=== PATIENT | male | born 1955 | race Caucasian/White ===

== ENCOUNTER 2021-08-23 08:05 | Emergency (ER) | payer OTHER ==
--- NOTE | 2021-08-23 08:36 | ER ---
Nurse's Notes [facility] Name: Bryce Medina Age: 66 yrs Sex: Male : 1955 Arrival Date: 08/23/2021 Time: 08:07 Bed 10 Private MD: Beto Camejo F Diagnosis: Coronavirus infection, unspecified Presentation: 08/23 08:15 Chief complaint: Patient states: I tested positive for covid yesterday, I have had 60 jg9 hours of symptoms-fever, body aches, sob, general malaise. Coronavirus screen: Vaccine status: Patient reports receiving the 2nd dose of the covid vaccine. Ebola Screen: Patient negative for fever greater than or equal to 101.5 degrees Fahrenheit, and additional compatible Ebola Virus Disease symptoms Patient denies exposure to infectious person. Patient denies travel to an Ebola-affected area in the 21 days before illness onset. Initial Sepsis Screen: Does the patient meet any 2 criteria? No. Patient's initial sepsis screen is negative. Does the patient have a suspected source of infection? No. Patient's initial sepsis screen is negative. Risk Assessment: Do you want to hurt yourself or someone else? Patient reports no desire to harm self or others. Onset of symptoms is unknown. 08:15 Method Of Arrival: Ambulatory jg9 08:15 Acuity: KARLENE 4 jg9 Triage Assessment: 08:17 General: Appears in no apparent distress. Behavior is calm, cooperative. Pain: Denies jg9 pain. EENT: No deficits noted. Neuro: No deficits noted. Cardiovascular: No deficits noted. Respiratory: Reports shortness of breath intermittent. GI: No deficits noted. : No deficits noted. Derm: No deficits noted. Musculoskeletal: No deficits noted. Historical: - Allergies: 08:16 PENICILLINS; jg9 - PMHx: 08:16 Depression; Hypertension; Sleep Apnea; jg9 - Immunization history:: Client reports receiving the 2nd dose of the Covid vaccine, Pneumococcal vaccine is up to date, Flu vaccine is not up to date. - Social history:: Smoking status: Patient denies any tobacco usage or history of. Screenin:17 Abuse screen: Denies threats or abuse. Denies injuries from another. Nutritional jg9 screening: No deficits noted. Tuberculosis screening: No symptoms or risk factors identified. Fall Risk None identified. Vital Signs: 08:15 BP 146 / 85; Pulse 80; Resp 20 S; Temp 97.4(TE); Pulse Ox 99% on R/A; Weight 151.95 kg jg9 (R); Height 5 ft. 9 in. (175.26 cm) (R); Pain 0/10; 08:45 BP 117 / 9; Pulse 78; Resp 18 S; Pulse Ox 99% on R/A; jg9 08:15 Body Mass Index 49.47 (151.95 kg, 175.26 cm) jg9 ED Course: 08:07 Patient arrived in ED. am2 08:07 Beto Camejo MD is Private Physician. am2 08:10 Ngoc Rodriguez, KEERTHI is Primary Nurse. jg9 08:16 Triage completed. jg9 08:17 Patient has correct armband on for positive identification. Bed in low position. Call jg9 light in reach. 08:18 Arm band placed on right wrist. jg9 08:19 Theo Morales NP is PHCP. pm1 08:19 Nickolas Campbell MD is Attending Physician. pm1 08:35 Beto Camejo MD is Referral Physician. pm1 08:38 No provider procedures requiring assistance completed. jg9 08:49 Patient did not have IV access during this emergency room visit. jg9 Administered Medications: No medications were administered Medication: 08:38 VIS not applicable for this client. jg9 Outcome: 08:36 Discharge ordered by . pm1 08:49 Discharged to home ambulatory. jg9 08:49 Condition: stable 08:49 Discharge instructions given to patient, Instructed on discharge instructions, follow up and referral plans. Demonstrated understanding of instructions, follow-up care, Prescriptions given X 1. 08:49 Patient left the ED. jg9 Signatures: Theo Morales NP MOTORBOAT OPERATOR pm1 Luba Haq am2 Ngoc Rodriguez, KEERTHI RN jg9
--- NOTE | 2021-08-23 08:36 | EDPHYS ---
Physician Documentation [facility] Name: Bryce Medina Age: 66 yrs Sex: Male : 1955 Arrival Date: 08/23/2021 Time: 08:07 Bed 10 Private MD: Beto Camejo F ED Physician Nickolas Campbell HPI: 08/23 08:34 This 66 yrs old Male presents to ER via Ambulatory with complaints of covid +, Doctor pm1 Referral. 08:34 Onset: The symptoms/episode began/occurred today. pm1 08:34 Associated signs and symptoms: Pertinent positives: fever, bodyaches, Pertinent pm1 negatives: abdominal pain, chest pain, shortness of breath, nausea, vomiting, diarrhea. 66-year-old male presents to the ER with complaints of covid symptoms. Patient with body aches and fever. Denies cough or shortness of breath or chest pain. Patient contacted his primary care provider, Dr. Lloyd, and was instructed to report to the ER for medication to treat covid. Patient is looking for a prescription of Paxlovid . Historical: - Allergies: 08:16 PENICILLINS; jg9 - PMHx: 08:16 Depression; Hypertension; Sleep Apnea; jg9 - Immunization history:: Client reports receiving the 2nd dose of the Covid vaccine, Pneumococcal vaccine is up to date, Flu vaccine is not up to date. - Social history:: Smoking status: Patient denies any tobacco usage or history of. ROS: 08:34 Eyes: Negative for injury, pain, redness, and discharge, ENT: Negative for injury, pm1 pain, and discharge, Cardiovascular: Negative for chest pain, palpitations, and edema, Respiratory: Negative for shortness of breath, cough, wheezing, and pleuritic chest pain, Abdomen/GI: Negative for abdominal pain, nausea, vomiting, diarrhea, and constipation, Back: Negative for injury and pain, MS/Extremity: Negative for injury and deformity, Skin: Negative for injury, rash, and discoloration, Neuro: Negative for headache, weakness, numbness, tingling, and seizure. 08:34 Constitutional: Positive for body aches, fever. 08:34 All other systems are negative. Exam: 08:34 Constitutional: This is a well developed, well nourished patient who is awake, alert, pm1 and in no acute distress. Head/Face: Normocephalic, atraumatic. 08:34 Back: No spinal tenderness. No costovertebral tenderness. Full range of motion. Skin: Warm, dry with normal turgor. Normal color with no rashes, no lesions, and no evidence of cellulitis. MS/ Extremity: Pulses equal, no cyanosis. Neurovascular intact. Full, normal range of motion. 08:34 Eyes: Exam is negative for acute changes, Extraocular movements: no acute changes, Conjunctiva: no acute changes. 08:34 Cardiovascular: Exam negative for acute changes, Rate: normal, Rhythm: regular, Pulses: no pulse deficits are appreciated, Heart sounds: normal. 08:34 Respiratory: Exam negative for acute changes, respiratory distress, shortness of breath, Breath sounds: are clear throughout. 08:34 Abdomen/GI: Exam negative for acute changes, Inspection: abdomen appears normal, Palpation: abdomen is soft and non-tender, in all quadrants. 08:34 Neuro: Exam negative for acute changes, Orientation: is normal, Mentation: is normal, Motor: is normal, moves all fours. Vital Signs: 08:15 BP 146 / 85; Pulse 80; Resp 20 S; Temp 97.4(TE); Pulse Ox 99% on R/A; Weight 151.95 kg jg9 (R); Height 5 ft. 9 in. (175.26 cm) (R); Pain 0/10; 08:45 BP 117 / 9; Pulse 78; Resp 18 S; Pulse Ox 99% on R/A; jg9 08:15 Body Mass Index 49.47 (151.95 kg, 175.26 cm) jg9 MDM: 08:20 Patient medically screened. pm1 08:21 Data reviewed: vital signs. Data interpreted: Pulse oximetry: on room air is 99 %. pm1 Interpretation: normal. 08:34 Counseling: I had a detailed discussion with the patient and/or guardian regarding: the pm1 historical points, exam findings, and any diagnostic results supporting the discharge/admit diagnosis, the need for outpatient follow up, to return to the emergency department if symptoms worsen or persist or if there are any questions or concerns that arise at home. Administered Medications: No medications were administered Disposition: 11:57 Co-signature as Attending Physician, Nickolas Campbell MD. rn Disposition Summary: 08/23/21 08:36 Discharge Ordered Location: Home pm1 Problem: new pm1 Symptoms: have improved pm1 Condition: Stable pm1 Diagnosis - Coronavirus infection, unspecified pm1 Followup: pm1 - With: Emergency Department - When: As needed - Reason: Worsening of condition Followup: pm1 - With: Beto Camejo MD - When: 2 - 3 days - Reason: Recheck today's complaints, Continuance of care, Re-evaluation by your physician Discharge Instructions: - Discharge Summary Sheet pm1 - COVID-19 pm1 - COVID-19 Frequently Asked Questions pm1 - 10 Things You Can Do to Manage Your COVID-19 Symptoms at Home - [facility] pm1 - COVID-19: Quarantine vs. Isolation - [facility] pm1 Forms: - Medication Reconciliation Form pm1 - Thank You Letter pm1 - Antibiotic Education pm1 - Prescription Opioid Use pm1 Prescriptions: - PAXLOVID - take 1 unit by ORAL route 2 times per day for 5 days Take AM and PM dosage as pm1 directed; 1 packet; Refills: 0, Dispense as Written Signatures: Nickolas Campbell MD MD rn Marinas, Patrick, NP MACHINE BENDER pm1 Ngoc Rodriguez RN RN jg9
[2021-08-23 08:58] VITALS: TEMP 97.4; O2SAT 99
[2021-08-23 09:00] VITALS: BP 117/9
== END 2021-08-23 08:49 | disposition home or self-care (01) ==
LOC: ER 08:05
DX: U07.1 COVID-19 (principal); I10 Essential (primary) hypertension; Z88.0 Allergy status to penicillin
CPT/HCPCS: 99282

== ENCOUNTER → 2023-04-06 | Emergency (ER) | payer OTHER ==
--- OUTSIDE RECORDS SUMMARY | 2023-04-06 09:20 | XMS REPORT | Continuity of Care Document ---
Author Name Unknown Address [address] [place] [address] [facility] Address [address] [place] [address] Care Team Providers Care Cap Cutter Name Role Phone Blayne Tobar Primary Care Physician [phone] [facility] Bed Attending Clinician Pierce Greene MD Attending Clinician + [phone] PIERCE RIVERA Attending Clinician UnavailPIERCE Sanchez Attending Clinician [place] sim[place] Doctor Unassigned, [place] Attending Clinician U navailable Payers Payer Name Policy Type Policy Number Effective Date Expirati on Date Source Allergies, Adverse Reactions, Alerts Allergy Name Allergy Type Status Severity Reaction(s) Onset Date Inactive Date Treating Clinician Comments Source NO KNOWN ALLERGIE S Drug Class Active [facility] Social History Social Habit Start Date Stop Date Quantity Comments Source Gender identity [facility] Sexual orientation U [facility] Sex Assigned At 1955 00:00:00 1955 00:00:00 [facility] Smoking Status Start Date Stop Date Source Tobacco smoking consumption unknown [facility] Procedures Procedure Date / Time Performed Performing Clinicia n Source SLEEP STUDY DATA REPORT 2022-09-03 05:01:00 Doctor Unassigned, [place] [facility] Encounters Start Date/Time End Date/Time Encounter Type Admission Type Attending Clinicians Care Facility Care Department Encounter ID Source 2022-09-03 20:00:00 2022-09-03 22:30:00 Electrical Repairer Visit 1, [facility] Sleep Lab Bed Pierce Rivera [facility] 1..[id number] [facility] 2022-09-03 20:00:00 2022-09-03 20:00:00 Outpatient R PIERCE RIVERA [facility] [id number] [facility] 2022-09-03 00:00:00 2022-09-03 00:00:00 Orders Only Doctor Unassigned, [place] [facility] 1..[id number] [facility]
[2023-04-06 09:47] LABS: Absolute Lymphocytes (CBC) 1.5 K/uL (0.7-4.9); Hematocrit 49.1 % (39.6-49.0); Lymphocytes % 17.6 % (15.3-44.8); MCV 85.2 fL (80-100); MPV 9.5 fL (7.6-11.3); Platelets 195 thou/uL (152-406); RBC Red Blood Cell Count 5.77 M/uL (4.33-5.43)
[2023-04-06 10:29] LABS: Albumin 3.2 g/dL (3.4-5.0); Bilirubin Total 0.4 mg/dL (0.2-1.0); Potassium 3.8 mEq/L (3.5-5.1); Protein, Total 6.4 g/dL (6.4-8.2)
--- NOTE | 2023-04-06 10:55 | RAD REPORT ---
EXAM DESCRIPTION: CTAbdomen Pelvis W Contrast - 04/06/2023 10:44 am CLINICAL HISTORY: Abdominal pain. rectal bleeding COMPARISON: Abdomen Pelvis W Contrast dated 12/28/2015 TECHNIQUE: Biphasic CT imaging of the abdomen and pelvis was performed with 100 ml non-ionic IV cont rast. All CT scans are performed using dose optimization technique as appropriate and may include automated exposure control or mA/KV adjustment according to patient size. FINDINGS: The lung bases are clear. The liver, spleen, pancreas, adrenal glands and kidneys are within normal limits. Benign bilateral re nal cysts. No bowel obstruction, free air, free fluid or abscess. Moderate stool is present throughout the colon . The appendix is normal. No evidence of significant lymphadenopathy. No suspicious bony findings. Left total hip arthroplasty. IMPRESSION: No acute intra-abdominal or pelvic finding. Moderate retained stool throughout the colon.
--- NOTE | 2023-04-06 11:59 | ER ---
Nurse's Notes [facility] Name: Bryce Medina Age: 68 yrs Sex: Male : 1955 Arrival Date: 04/06/2023 Time: 09:16 Bed 17 Private MD: BRANDON ENG Diagnosis: External hemorrhoid with bleeding;Constipation Presentation: 04/06 09:28 Risk Assessment: Do you want to hurt yourself or someone else? Patient reports no mb9 desire to harm self or others. 09:29 Chief complaint: Patient states: Slight rectal irritation and rectal bleeding started ll1 "a couple days ago". Heavier bright red bleeding with clots started today. No fever or abdominal pain. Coronavirus screen: Client denies travel out of the [place] in the last 14 days. At this time, the client does not indicate any symptoms associated with coronavirus-19. Ebola Screen: Patient denies travel to an Ebola-affected area in the 21 days before illness onset. Initial Sepsis Screen: Does the patient meet any 2 criteria? No. Patient's initial sepsis screen is negative. Does the patient have a suspected source of infection? Yes: Other: rectal pain/bleeding. Onset of symptoms was April 04, 2023. 09:29 Method Of Arrival: Ambulatory ll1 09:29 Acuity: KARLENE 3 ll1 Historical: - Allergies: 09: PENICILLINS; mb9 - PMHx: :21 Depression; Hypertension; Sleep Apnea; mb9 - Immunization history:: Adult Immunizations up to date. - Social history:: Smoking status: Patient denies any tobacco usage or history of. - Family history:: not pertinent. Screenin:21 [facility] ED Fall Risk Assessment (Adult) History of falling in the last 3 months, mb9 including since admission No falls in past 3 months (0 pts) Confusion or Disorientation No (0 pts) Intoxicated or Sedated No (0 pts) Impaired Gait No (0 pts) Mobility Assist Device Used No (0 pt) Altered Elimination No (0 pt) Score/Fall Risk Level 0 - 2 = Low Risk Oriented to surroundings, Maintained a safe environment, Educated pt \\T\\ family on fall prevention, incl call for assistance when getting out of bed. Abuse screen: Denies threats or abuse. Nutritional screening: No deficits noted. Tuberculosis screening: No symptoms or risk factors identified. Assessment: 09:38 General: Appears in no apparent distress. Behavior is calm, cooperative. Pain: Denies mb9 pain. Neuro: Clement Agitation-Sedation Scale (RASS): 0 - Alert and Calm Level of Consciousness is awake, alert, confused, Oriented to person, place, time, situation, Appropriate for age. Cardiovascular: Patient's skin is warm and dry. Respiratory: Airway is patent Respiratory effort is even, unlabored, Respiratory pattern is regular, symmetrical. GI: Abdomen is round non-distended, Bowel sounds present X 4 quads. Abd is soft and non tender X 4 quads. Reports rectal bleeding. : No signs and/or symptoms were reported regarding the genitourinary system. EENT: No signs and/or symptoms were reported regarding the EENT system. Derm: Skin is pink, warm \\T\\ dry. Musculoskeletal: Range of motion: intact in all extremities. 10:54 Reassessment: No changes from previously documented assessment. Patient and/or family mb9 updated on plan of care and expected duration. Pain level reassessed. Patient is alert, oriented x 3, equal unlabored respirations, skin warm/dry/pink. 11:59 Reassessment: No changes from previously documented assessment. Patient and/or family mb9 updated on plan of care and expected duration. Pain level reassessed. Patient is alert, oriented x 3, equal unlabored respirations, skin warm/dry/pink. Vital Signs: 09:29 BP 147 / 79; Pulse 74; Resp 18; Temp 98.8; Pulse Ox 97% on R/A; Pain 3/10; ll1 09:45 BP 122 / 71; Pulse 68; Resp 18; Pulse Ox 100% on R/A; mb9 11:33 BP 124 / 68; Pulse 62; Resp 18; Pulse Ox 97% on R/A; mb9 11:59 BP 136 / 77; Pulse 66; Resp 18; Pulse Ox 100% ; Pain 0/10; mb9 09:29 Pain Scale: Adult ll1 11:59 Pain Scale: Adult mb9 ED Course: 09:19 Patient arrived in ED. rg4 09:19 Son Farris MD is Attending Physician. rt 09:20 BRANDON ENG is Private Physician. rg4 09:20 Fany Leavitt RN is Primary Nurse. mb9 09:20 Arm band placed on. mb9 09:21 Placed in gown. Bed in low position. Call light in reach. Side rails up X 1. Client mb9 placed on continuous cardiac and pulse oximetry monitoring. NIBP monitoring applied. classroom monitor on. 09:32 Triage completed. ll1 09:37 CBC with Diff Sent. mb9 09:37 CMP Sent. mb9 09:37 Inserted saline lock: 20 gauge in right antecubital area, using aseptic technique. mb9 09:39 No provider procedures requiring assistance completed. mb9 10:45 CT Abd/Pelvis - IV Contrast Only In Process Unspecified. EDMS 11:57 BRANDON ENG is Referral Physician. rt 11:59 IV discontinued, intact, bleeding controlled, No redness/swelling at site. Pressure mb9 dressing applied. Administered Medications: No medications were administered Medication: 09:21 VIS not applicable for this client. mb9 Outcome: 11:58 Discharge ordered by . rt 12:04 Patient left the ED. mb9 Signatures: Dispatcher [employer] Azul Llanes rg4 Apolonia Holman, RN RN ll1 Fany Leavitt, RN RN mb9 Son Farris MD MD rt
--- NOTE | 2023-04-06 11:59 | EDPHYS ---
Physician Documentation [facility] Name: Bryce Medina Age: 68 yrs Sex: Male : 1955 Arrival Date: 04/06/2023 Time: 09:16 Bed 17 Private MD: BRANDON ENG ED Physician Son Farris HPI: 04/06 09:35 This 68 yrs old Male presents to ER via Ambulatory with complaints of Rectal Bleeding. rt 09:35 Patient presents to the ED with rectal bleeding. Patient states that he had an itch, rt possible hemorrhoid to the rectum for the past few days, states that he is having hard stools. States that he had bleeding, moderate in severity today, states it was bright red blood, past few clots. Denies lightheadedness, abdominal pain, nausea, vomiting, other acute complaints. Symptoms are moderate in severity, no other aggravating relieving factors.. Historical: - Allergies: 09:21 PENICILLINS; mb9 - PMHx: 09:21 Depression; Hypertension; Sleep Apnea; mb9 - Immunization history:: Adult Immunizations up to date. - Social history:: Smoking status: Patient denies any tobacco usage or history of. - Family history:: not pertinent. ROS: 09:35 Constitutional: Negative for fever, chills, and weight loss, Cardiovascular: Negative rt for chest pain, palpitations, and edema, Respiratory: Negative for shortness of breath, cough, wheezing, and pleuritic chest pain, MS/Extremity: Negative for injury and deformity, Skin: Negative for injury, rash, and discoloration, Neuro: Negative for headache, weakness, numbness, tingling, and seizure, Psych: Negative for depression, anxiety, suicide ideation, homicidal ideation, and hallucinations, 09:35 Abdomen/GI: Positive for rectal bleeding, Negative for abdominal pain, nausea and vomiting, Exam: 09:35 Constitutional: This is a well developed, well nourished patient who is awake, alert, rt and in no acute distress. Head/Face: Normocephalic, atraumatic. Chest/axilla: Normal chest wall appearance and motion. Nontender with no deformity. No lesions are appreciated. Cardiovascular: Regular rate and rhythm with a normal S1 and S2. No gallops, murmurs, or rubs. Normal PMI, no JVD. No pulse deficits. Respiratory: Lungs have equal breath sounds bilaterally, clear to auscultation and percussion. No rales, rhonchi or wheezes noted. No increased work of breathing, no retractions or nasal flaring. Skin: Warm, dry with normal turgor. Normal color with no rashes, no lesions, and no evidence of cellulitis. MS/ Extremity: Pulses equal, no cyanosis. Neurovascular intact. Full, normal range of motion. Neuro: Awake and alert, GCS 15, oriented to person, place, time, and situation. Cranial nerves II-XII grossly intact. Motor strength 5/5 in all extremities. Sensory grossly intact. Cerebellar exam normal. Normal gait. Psych: Awake, alert, with orientation to person, place and time. Behavior, mood, and affect are within normal limits. 09:35 Abdomen/GI: No abdominal tenderness, distention. There is a large external hemorrhoid with apparent bleeding. No melena, Vital Signs: 09:29 BP 147 / 79; Pulse 74; Resp 18; Temp 98.8; Pulse Ox 97% on R/A; Pain 3/10; ll1 09:45 BP 122 / 71; Pulse 68; Resp 18; Pulse Ox 100% on R/A; mb9 11:33 BP 124 / 68; Pulse 62; Resp 18; Pulse Ox 97% on R/A; mb9 11:59 BP 136 / 77; Pulse 66; Resp 18; Pulse Ox 100% ; Pain 0/10; mb9 09:29 Pain Scale: Adult ll1 11:59 Pain Scale: Adult mb9 MDM: 09:22 Patient medically screened. rt 15:19 Differential diagnosis: Hemorrhoids, diverticulitis, colitis. Data reviewed: vital rt signs, nurses notes. Consideration of Admission/Observation Escalation of care including admission/observation considered. Patient with clear hemorrhoidal bleeding. H\T\H is stable. Does not require admission for further workup. Instructed patient to take stool softeners, to follow-up as an outpatient.. Independent interpretation of the following test(s) in the Emergency Department CT Scan: My interpretation is No diverticular disease seen on interpretation of CT scan images. Care significantly affected by the following chronic conditions: Hypertension. Counseling: I had a detailed discussion with the patient and/or guardian regarding the historical points, exam findings, and any diagnostic results supporting the discharge/admit diagnosis, lab results, radiology results, the need for outpatient follow up. Response to treatment: There is no appreciated change of the patient's symptoms at this time. 04/06 09:30 Order name: CBC with Diff; Complete Time: 10:35 rt 04/06 09:30 Order name: CMP; Complete Time: 10:35 rt 04/06 09:30 Order name: CT Abd/Pelvis - IV Contrast Only; Complete Time: 10:56 rt 04/06 09:30 Order name: IV Saline Lock; Complete Time: 09:37 rt 04/06 09:30 Order name: Labs collected and sent; Complete Time: 09:37 rt 04/06 09:49 Order name: Labs - recollect needed: recollect green top; Complete Time: 10:10 bd Administered Medications: No medications were administered Disposition Summary: 04/06/23 11:58 Discharge Ordered Notes: Location: Home rt Problem: new rt Symptoms: have improved rt Condition: Stable rt Diagnosis - External hemorrhoid with bleeding rt - Constipation rt Followup: rt - With: BRANDON ENG - When: 2 - 3 days - Reason: Discharge Instructions: - Discharge Summary Sheet rt - Constipation, Adult rt - Hemorrhoids rt Forms: - Medication Reconciliation Form rt - Thank You Letter rt - Antibiotic Education rt - Prescription Opioid Use rt - Patient Portal Instructions rt - Leadership Thank You Letter rt Signatures: Dispatcher [employer] Kristal Ayala Lynsay, RN RN ll1 Fany Leavitt RN RN mb9 Son Farris MD MD rt
[2023-04-06 12:34] VITALS: BP 136/77; TEMP 98.8; O2SAT 100
== END ==
LOC: ER 09:16
DX: K64.4 Residual hemorrhoidal skin tags (principal); K59.00 Constipation, unspecified; Z88.0 Allergy status to penicillin
CPT/HCPCS: 85025; 36415; 80053; 74177; Q9967